=== PATIENT | female | born 1975 | race Caucasian/White ===

== ENCOUNTER → 2023-10-27 | Day surgery (SDC) | payer OTHER ==
[~2023-10-27] MED LIST: ASHWAGANDHA300 MG; BIOTIN1000 MCG; DEXAMETHASONE SOD PHOS INJ 4 MG/ML SDV ONE; DILANTIN100 MG PO; EFFEXOR XR150 MG PO; ESTROVEN MENOP1 EACH; FENTANYL CITRATE/PF 100MCG/2 ML INJ ONE; FEROSUL325 MG PO; HYDROXYZINE HCL25 MG PO; IOPAMIDOL 610MG/1ML 300 MG/ML VIAL IV ONE; KETOROLAC TROMETHAMINE 30 MG/ML VIAL ONE; LIDOCAINE HCL 2% LOCAL INJ 5 ML SDV VIAL INJ ONE; LORATADINE10 MG PO; LYRICA75 MG PO; MIDAZOLAM HCL 2 MG/2 ML VIAL ONE; MULTI-VITAMIN1 EACH PO; ONDANSETRON HCL INJ 2MG/ML 2ML 2 MG/ML VIAL ONE; POTASSIUM; PROPOFOL IV EMULSION 10 MG/ML 20 ML VIAL ONE; SEVOFLURANE INHAL SOLN 250 ML PEN BTL ONE; TRAZODONE HCL100 MG PO; ULTRAM 50MG50 MG PO; VESICARE5 MG PO
[2023-10-27] MEDS: CEFTRIAXONE 1 GM VIAL ONE (06:02)
[2023-10-27] MEDS: LACTATED RINGER'S 1,000 ML ONE (06:02)
[2023-10-27 07:17] VITALS: TEMP 98.8
[2023-10-27] MEDS: FENTANYL CITRATE/PF 100MCG/2 ML INJ ONE (07:34)
[2023-10-27 08:03] VITALS: BP 132/84; PULSE 78; RESP 16; O2SAT 98
== END | disposition home or self-care (01) ==
LOC: OR 05:30
PROVIDERS: ATTEND Urology
DX: R31.29 Other microscopic hematuria (principal); N13.30 Unspecified hydronephrosis; Z87.442 Personal history of urinary calculi; N39.0 Urinary tract infection, site not specified; R35.1 Nocturia; I10 Essential (primary) hypertension; D64.9 Anemia, unspecified; R56.9 Unspecified convulsions; F41.9 Anxiety disorder, unspecified; F32.A Depression, unspecified; Z79.899 Other long term (current) drug therapy
CPT/HCPCS: 52005; 74420; 81025; C1758; C1769; J0696; J1100; J1885; J2001; J2250; J2405; J2704; J3010; J7121; Q9967